=== PATIENT | male | born 1975 | race Caucasian/White ===

== ENCOUNTER 2018-12-12 15:10 | Inpatient (IN) | payer OTHER ==
[2018-12-12 18:18] VITALS: BMI 25.1
--- NOTE | 2018-12-12 21:02 | HP ---
CIWA Score Nausea/Vomitin-No Nausea/No Vomiting Muscle Tremors: None Anxiety: 1-Mildly Anxious Agitation: 4-Moderately Restless Paroxysmal Sweats: 4-Forehead w/Sweat Beads Orientation: 1-Uncertain about Date Tacttile Disturbances: 0-None Auditory Disturbances: 0-None Visual Disturbances: 0-None Headache: 4-Moderately Severe (8/10) CIWA-Ar Total Score: 14 - Admission Criteria [facility]AS[facility] Guidelines: Admission for Medically Managed Detox: Requires at least one of the followin. CIWA greater than 12 2. Seizures within the past 24 hours 3. Delirium tremens within the past 24 hours 4. Hallucinations within the past 24 hours 5. Acute intervention needed for co occurring medical disorder 6. Acute intervention needed for co occurring psychiatric disorder 7. Severe withdrawal that cannot be handled at a lower level of care (continued vomiting, continued diarrhea, abnormal vital signs) requiring intravenous medication and/or fluids 8. Patient presents the following: Acute intervention needed for co-occurring med or psych disorder (elevated b/p denies htn) Admission Criteria Met: Admission criteria met Admission ROS [facility] - [facility] Chief Complaint: SEEKING DETOX Allergies/Adverse Reactions: Allergies Allergy/AdvReac Type Severity Reaction Status Date / Time No Known Allergies Allergy Verified 12/12/18 18:18 History of Present Illness: HERE FOR ALCOHOL DETOX. CLIENT IS REFERRED BY [facility]. THIS IS HIS FIRST ADMISSION HERE. PRESENTS WITH C/O WITHDRAWAL SX'S. STATES THIS IS HIS FIRST TIME SEEKING TXMENT. 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 HE ALSO ABUSES CANNABIS. DENIES ANY SIGNIFICANT PERIOD OF CLEAN TIME. LIVES WITH FAMILY, EMPLOYED, DENIES LEGALS Exam Limitations: No Limitations - Ebola screening Have you traveled outside of the country in the last 21 days: No Have you had contact with anyone from an Ebola affected area: No Have you been sick,other than usual withdrawal symptoms: No Do you have a fever: No - Review of Systems Constitutional: No Symptoms Reported EENT: reports: No Symptoms Reported Respiratory: reports: No Symptoms reported Cardiac: reports: No Symptoms Reported GI: reports: No Symptoms Reported : reports: No Symptoms Reported Musculoskeletal: reports: No Symptoms Reported Integumentary: reports: Flushing, Sweating Neuro: reports: Other (BLACK OUTS WITH INTOXICATION) Endocrine: reports: No Symptoms Reported Hematology: reports: No Symptoms Reported Psychiatric: reports: Orientated x3, Anxious Other Systems: Reviewed and Negative Patient History - Patient Medical History Hx Anemia: No Hx Asthma: No Hx Chronic Obstructive Pulmonary Disease (COPD): No Hx Cancer: No Hx Cardiac Disorders: No Hx Congestive Heart Failure: No Hx Hypertension: No Hx Hypercholesterolemia: No Hx Pacemaker: No HX Cerebrovascular Accident: No Hx Seizures: No Hx Dementia: No Hx Diabetes: No Hx Gastrointestinal Disorders: No Hx Liver Disease: No Hx Genitourinary Disorders: No Hx Sexually Transmitted Disorders: No Hx Renal Disease (ESRD): No Hx Thyroid Disease: No Hx Human Immunodeficiency Virus (HIV): No Hx Hepatitis C: No Hx Depression: No Hx Suicide Attempt: No Hx Bipolar Disorder: No Hx Schizophrenia: No Other Medical History: DENIES - Patient Surgical History Past Surgical History: No - PPD History Previous Implant?: Yes Documented Results: Negative w/o proof Implanted On Prior [facility] Admission?: No PPD to be Administered?: Yes - Smoking Cessation Smoking history: Current every day smoker Have you smoked in the past 12 months: Yes Aproximately how many cigarettes per day: 3 Cigars Per Day: 0 Hx Chewing Tobacco Use: No Initiated information on smoking cessation: Yes 'Breaking Loose' booklet given: 12/12/18 - Substance & Tx. History Hx Alcohol Use: Yes Hx Substance Use: Yes Substance Use Type: Alcohol, Marijuana Hx Substance Use Treatment: No - Substances abused Alcohol Substance route: Oral Frequency: Daily Amount used: 1 to 2 pints of vodka,beer Age of first use: 13 Date of last use: 12/12/18 Alprazolam (Xanax) Substance route: Oral Frequency: Daily Amount used: 4 to 6 tabs Age of first use: 18 Date of last use: 12/11/18 Marijuana/Hashish Substance route: Smoking Frequency: Daily Amount used: 6 lbs Age of first use: 20 Date of last use: 12/12/18 Admission Physical Exam [facility] - Vital Signs Vital Signs: Vital Signs - 24 hr 12/12/18 18:10 Temperature 99 F Pulse Rate 74 Respiratory 20 Rate Blood Pressure 145/82 - Physical General Appearance: Yes: Moderate Distress, Anxious HEENTM: Yes: EOMI, Normocephalic, Normal Voice, BETTYE, Pharynx Normal, Other ( MISSING TEETH) Respiratory: Yes: Chest Non-Tender, Lungs Clear, Normal Breath Sounds, No Respiratory Distress, No Accessory Muscle Use Neck: Yes: No masses,lesions,Nodules, Supple, Trachea in good position Breast: Yes: Breasts Symetrical, No Discharge, No masses Cardiology: Yes: Regular Rhythm, Regular Rate, S1, S2 Abdominal: Yes: Normal Bowel Sounds, Non Tender, Flat, Soft Genitourinary: Yes: Within Normal Limits Back: Yes: Normal Inspection Musculoskeletal: Yes: full range of Motion, Gait Steady Extremities: Yes: Normal Capillary Refill, Normal Inspection, Normal Range of Motion, Non-Tender Neurological: Yes: Fully Oriented, Alert, Motor Strength 5/5, Depressed Affect ( DENIES SI/HI- DECLINES [facility]) Integumentary: Yes: Dry, Warm, Rash (CONTACT DERM NON PRURITIC), Other (FLUSHED) Lymphatic: Yes: Within Normal Limits - Diagnostic (1) Alcohol dependence with withdrawal, uncomplicated Current Visit: Yes Status: Acute (2) Cannabis dependence, uncomplicated Current Visit: Yes Status: Acute (3) Nicotine dependence Current Visit: Yes Status: Chronic Qualifiers: Nicotine product type: cigarettes Substance use status: uncomplicated Qualified Code(s): F17.210 - Nicotine dependence, cigarettes, uncomplicated (4) Elevated BP without diagnosis of hypertension Current Visit: Yes Status: Acute Cleared for Admission [facility] - Detox or Rehab [facility] Level of Care: Medically Managed Detox Regimen/Protocol: Librium Claeared for Rehab Admission: No Breathalyzer - Breathalyzer Breathalyzer: 0 Urine Drug Screen - Test Device Lot number: [id number] Expiration date: 07/24/20 - Control Is test valid?: Yes - Results Drug screen NEGATIVE: No Urine drug screen results: THC-Marijuana Inpatient Rehab Admission - Rehab Decision to Admit Inpatient rehab admission?: No
[2018-12-12] MEDS ORDERED: ACETAMINOPHEN 325 MG TABLET (FP) PO PRN ×2 (21:08)
[2018-12-12] MEDS ORDERED: MAGNESIUM HYDROX 2400MG/30ML ORAL SUSPENSION 30 ML CUP PO PRN (21:08)
[2018-12-12] MEDS ORDERED: MENTHOL/PHENOL 1 EACH UD MM PRN (21:08)
[2018-12-12] MEDS ORDERED: MAGNESIUM CITRATE 300 ML BOTTLE PO PRN (21:08)
[2018-12-12] MEDS ORDERED: METHOCARBAMOL 500 MG TABLET PO PRN (21:08)
[2018-12-12] MEDS ORDERED: ONDANSETRON *ODT* 4 MG TABLET SL PRN (21:08)
[2018-12-12] MEDS ORDERED: BISMUTH SUBSALICYLATE 524 MG/30 ML UD PO PRN (21:08)
[2018-12-12] MEDS ORDERED: P-EPHED 60MG/TRIPROLIDI 2.5MG TABLET PO PRN (21:08)
[2018-12-12] MEDS ORDERED: chlordiazePOXIDE HCL 10 MG CAPSULE PO PRN (21:08)
[2018-12-12] MEDS ORDERED: hydrOXYzine PAMOATE 25 MG CAPSULE (FP) PO PRN (21:08)
[2018-12-12] MEDS ORDERED: MAG HYDROX/AL HYDROX/SIMETH 30 ML UNIT-DOSE CUP PO PRN (21:08)
[2018-12-12] MEDS ORDERED: IBUPROFEN 400 MG TABLET (FP) PO PRN (21:08)
[2018-12-12] MEDS ORDERED: DICYCLOMINE HCL 10 MG CAPSULE PO PRN (21:08)
[2018-12-12] MEDS ORDERED: NICOTINE POLACRILEX 2 MG GUM BUC PRN (21:08)
[2018-12-12] MEDS ORDERED: MELATONIN 5 MG TABLETS PO PRN (21:08)
[2018-12-12] MEDS ORDERED: guaiFENesin 200 MG/10 ML 10 ML UNIT-DOSE CUPS PO PRN (21:08)
[2018-12-12] MEDS ORDERED: THIAMINE HCL 100 MG TABLET (FP) PO SCH (22:00)
[2018-12-12] MEDS: chlordiazePOXIDE HCL 25 MG CAPSULE PO SCH (23:05)
[2018-12-13] MEDS: chlordiazePOXIDE HCL 25 MG CAPSULE PO SCH (06:04)
[2018-12-13 09:31] VITALS: BP 155/116; PULSE 101; TEMP 97.5
[2018-12-13] MEDS ORDERED: PRENATAL VITAMINS W/ FOLIC ACID TABLET (FP) PO SCH (10:00)
[2018-12-13] MEDS ORDERED: NICOTINE 14 MG/24 HOURS TOPICAL PATCH TD SCH (10:00)
[2018-12-13] MEDS ORDERED: cloNIDine HCL 0.1 MG TABLET PO PRN (10:52)
--- NOTE | 2018-12-13 10:53 | PN ---
S CIWA - CIWA Score Nausea/Vomitin-Mild Nausea/No Vomiting Muscle Tremors: 3 Anxiety: 3 Agitation: 3 Paroxysmal Sweats: 3 Orientation: 0-Oriented Tacttile Disturbances: 0-None Auditory Disturbances: 0-None Visual Disturbances: 0-None Headache: 0-None Present CIWA-Ar Total Score: 13 S Progress Note (SOAP) Subjective: Feels ok, medication is working fine except poor sleep, "sleeps better when sleeps with my in same bed but it's ok for now because I will be leaving soon." Objective: 12/13/18 10:50 Last Vital Signs Temp Pulse Resp BP Pulse Ox 97.5 F L 101 H 20 155/116 H 12/13/18 09:30 12/13/18 09:30 12/13/18 09:30 12/13/18 09:30 Elevated b/p noted: denies htn (not on medication, will start clonidine 0.1mg q8hr prn if b/p > 140/90) Admission lab results pending Assessment: 12/13/18 10:54 Withdrawal sxs Noted with elevated b/p Plan: Continue detox Encouraged PO water intake Follow up on admission lab results Elevated b/p: most likely due to withdrawal, start clonidine 0.1mg PO q8hr prn if b/p > 140/90
[2018-12-13 10:58] LABS: HEMATOCRIT 54.1 % (35.4-49); HEMOGLOBIN 18.6 GM/dL (11.7-16.9); MCH 29.5 pg (25.7-33.7); MCHC 34.4 g/dl (32.0-35.9); MEAN CELL VOLUME 85.9 fl (80-96); MEAN PLT VOLUME 7.8 fl (7.5-11.1); PLATELET COUNT 274 K/MM3 (134-434); RBC 6.29 M/mm3 (4.00-5.60); RDW 14.6 % (11.9-15.9); WHITE BLOOD COUNT 12.3 K/mm3 (4.0-10.0)
[2018-12-13 10:59] LABS: ALBUMIN 4.3 g/dl (3.4-5.0); BILIRUBIN,TOTAL 3.2 mg/dL (0.2-1); BLOOD UREA NITROGEN 17.2 mg/dL (7-18); CALCIUM 9.1 mg/dL (8.5-10.1); CREATININE 1.1 mg/dL (0.55-1.3); TOT PROT 8.3 g/dl (6.4-8.2)
--- NOTE | 2018-12-13 12:03 | DS ---
[facility] Detox Discharge Summary Admission Date: 12/12/18 - History Present History: Alcohol Dependence, Cannabis Dependence, Sedative Dependence Additional Comments: Patient requested to leave AMA despite encouragement from staff to complete detox. Patient stated he has to get the fuck out of here because he has things to do. Patient noted with abnormal CBC, elevated total bilirubin and elevated b/ p (patient is anxious, denies htn, on clonidine prn): instructed to follow up with his PCP within 2 days and to call [phone] if feeling sick or withdrawal sxs. Pertinent Past History: Alcohol dependence Sedative dependence Cannabis dependence Nicotine dependence - Physical Exam Results Vital Signs: Vital Signs Temperature 97.5 F L 12/13/18 09:30 Pulse Rate 101 H 12/13/18 09:30 Respiratory Rate 20 12/13/18 09:30 Blood Pressure 155/116 H 12/13/18 09:30 O2 Sat by Pulse Oximetry (%) Pertinent Admission Physical Exam Findings: Withdrawal sxs Laboratory Tests 12/13/18 12/13/18 08:00 08:00 WBC 12.3 H RBC 6.29 H Hgb 18.6 H Hct 54.1 H MCV 85.9 MCH 29.5 MCHC 34.4 RDW 14.6 Plt Count 274 MPV 7.8 Sodium 142 Potassium 4.0 Chloride 105 Carbon Dioxide 25 Anion Gap 13 BUN 17.2 Creatinine 1.1 Est GFR (CKD-EPI)AfAm 93.47 Est GFR (CKD-EPI)NonAf 80.64 Random Glucose 92 Calcium 9.1 Total Bilirubin 3.2 H AST 26 ALT 31 Alkaline Phosphatase 106 Total Protein 8.3 H Albumin 4.3 Labs reviewed: abnormal CBC and elevated total bilirubin noted (wbc 12.3, rbc 6.29, h/h 18.6/54.1, total bilirubin 3.2; instructed to see PCP within 2 days - Medication Discharge Medications: Ambulatory Orders NK [No Known Home Medication] 12/12/18 - Diagnosis (1) Sedative hypnotic or anxiolytic dependence Current Visit: Yes Status: Acute (2) Abnormal complete blood count Current Visit: Yes Status: Acute (3) Alcohol dependence with withdrawal, uncomplicated Current Visit: Yes Status: Acute (4) Cannabis dependence, uncomplicated Current Visit: Yes Status: Acute (5) Elevated BP without diagnosis of hypertension Current Visit: Yes Status: Acute (6) Nicotine dependence Current Visit: Yes Status: Chronic Qualifiers: Nicotine product type: cigarettes Substance use status: uncomplicated Qualified Code(s): F17.210 - Nicotine dependence, cigarettes, uncomplicated (7) Total bilirubin, elevated Current Visit: Yes Status: Acute - AMA Did Patient Leave Against Medical Advice: Yes (Instructed to call [phone] if sick or withdrawal sxs)
[2018-12-14] MEDS ORDERED: chlordiazePOXIDE 5 MG CAPSULE PO SCH (05:00)
[2018-12-15] MEDS ORDERED: chlordiazePOXIDE HCL 10 MG CAPSULE PO PRN
[2018-12-15] MEDS ORDERED: chlordiazePOXIDE HCL 10 MG CAPSULE PO SCH (05:00)
--- NOTE | 2018-12-15 13:35 | EKG ---
Test Reason : Blood Pressure : / mmHG Vent. Rate : 069 BPM Atrial Rate : 069 BPM P-R Int : 180 ms QRS Dur : 104 ms QT Int : 390 ms P-R-T Axes : 064 069 059 degrees QTc Int : 417 ms NORMAL SINUS RHYTHM NORMAL ECG NO PREVIOUS ECGS AVAILABLE Confirmed by MD Rose Marie, Fuentes ([id number]) on 12/15/2018 1:35:19 PM Referred By: DR EDDY Confirmed By:Fuentes Trotter MD
[2018-12-16] MEDS ORDERED: chlordiazePOXIDE HCL 10 MG CAPSULE PO ONE (05:00)
== END 2018-12-13 11:55 | disposition left against medical advice (07) | DRG 770 ==
LOC: YASAS 15:10 → Y6N 21:43
PROVIDERS: ADMIT Allergy & Immunology; ATTEND Allergy & Immunology
PROC: HZ2ZZZZ Detoxification Services for Substance Abuse Treatment (ICD-10-PCS; principal; 2018-12-12)
DX: F10.230 Alcohol dependence with withdrawal, uncomplicated (principal); F13.20 Sedative, hypnotic or anxiolytic dependence, uncomplicated; F12.20 Cannabis dependence, uncomplicated; F17.210 Nicotine dependence, cigarettes, uncomplicated; E80.6 Other disorders of bilirubin metabolism; R03.0 Elevated blood-pressure reading, without diagnosis of hypertension; R79.9 Abnormal finding of blood chemistry, unspecified
CPT/HCPCS: 36415; 80053; 85027; 86593; 93005; 93010